=== PATIENT | female | born 1985 | race Caucasian/White ===

== ENCOUNTER 2017-07-06 16:16 | Emergency (ER) | payer OTHER ==
[~2017-07-06] VITALS: Ht 177.8 cm; Wt 97.7 kg
[~2017-07-06 16:16] MED LIST: TOPI200T14 PO; TRAM-10 PO
[2017-07-06 16:20] VITALS: TEMP 37.1; Ht 177.8 cm; Wt 97.7 kg
[2017-07-06] MEDS ORDERED: BUSP-8 PO (17:18)
[2017-07-06] MEDS ORDERED: MoRPHine SULFATE 4 MG/ML 1 ML CARP\\VIAL IV PRN (18:00)
[2017-07-06] MEDS ORDERED: ONDANSETRON INJ 2 MG/ML 2 ML VIAL IV PRN (18:00)
[2017-07-06] MEDS ORDERED: SODIUM CHLORIDE 0.9% 1000ML 1,000 ML IV ONE ×2 (18:00→19:30)
--- NOTE | 2017-07-06 18:05 | EMERGENCY ROOM VISIT NOTE ---
History First contact with patient: 17:41 Chief Complaint: ABDOMINAL PAIN Stated Complaint: ABDOMINAL PAIN Nursing Triage Summary: right sided abd pain, nausea and vomiting History of Present Illness The patient is a 31 year old female who presents to the Emergency Room with complaints of nausea, vomiting and abdominal pain. The patient's vomiting began yesterday. It does not have a specific color. She has vomited several times. She tried to have a root beer at work today and she is now unable to keep down liquids. The abdominal pain started earlier this morning. She describes it as a constant pain in the middle of her upper abdomen. It is worse with movement. She denies any diarrhea. Review of Systems 10 system review performed and negative unless noted in HPI or below Past Medical/Surgical History Medical Problems: (1) Diabetes (2) Knee surgery (3) Migraines (4) Seizure disorder (5) Tubal ligation Social History Smoking Status: Never Smoker Marital Status: single Housing Status: lives with family Occupation Status: employed Current/Historical Medications Scheduled Control Pills ( Control Pills), 1 TAB PO DAILY Buspirone Hcl (Buspirone Hcl), 10 MG PO TID Cefdinir (Omnicef), 600 MG PO DAILY Citalopram Hydrobromide (Citalopram Hydrobromide), 40 MG PO HS Lamotrigine (Lamictal), 200 MG PO BID Levothyroxine Sodium (Levothyroxine Sodium), 50 MCG PO DAILY Pantoprazole (Protonix), 40 MG PO DAILY Topiramate (Topamax), 200 MG PO BID Topiramate (Topamax), 50 MG PO BID Scheduled PRN Hydrocodone/Acetaminophen 5MG/325MG ([place] 5MG/325MG), 1-2 TABLET PO Q4H PRN for Pain Promethazine Hcl (Phenergan), 25 MG PO Q6H PRN for Nausea Tramadol (Ultram), 50 MG PO BID PRN for Pain Physical Exam Vital Signs Date Time Temp Pulse Resp B/P (MAP) Pulse Ox O2 Delivery O2 Flow Rate FiO2 07/06/17 22:10 89 16 110/58 97 07/06/17 19:50 85 16 123/73 95 Room Air 07/06/17 18:05 82 16 135/73 95 Room Air 07/06/17 16:20 37.1 106 20 133/83 96 Room Air Physical Exam VITALS: Vitals are noted on the nurse's note and reviewed by myself. Vital signs stable. GENERAL: 31-year-old female, uncomfortable in appearance, nondiaphoretic, well- developed well-nourished. SKIN: The skin was without rashes, erythema, edema, or bruising. HEAD: Normocephalic atraumatic. MOUTH: Mucous membranes dry NECK: Supple without nuchal rigidity. No lymphadenopathy. Cervical spine is nontender. No JVD. HEART: Regular rate and rhythm without murmurs gallops or rubs. LUNGS: Clear to auscultation bilaterally without wheezes, rales or rhonchi. No accessory muscle use. ABDOMEN:.Bowel sounds present, but hypoactive. Soft, mild tenderness to palpation in the left lower quadrant and left upper quadrant, without organomegaly. No guarding or rebound tenderness. MUSCULOSKELETAL: No muscle atrophy, erythema, or edema noted. Strength 5/5 throughout. NEURO: Patient was alert and oriented to person place and time. Normal sensation to touch. No focal neurological deficits. Medical Decision & Procedures ER Provider Diagnostic Interpretation: CT abdomen/pelvis with IV contrast IMPRESSION: 1. Left lower lobe pulmonary airspace opacity suspicious for pneumonia. Clinical and radiographic follow-up is recommended 2. No evidence of bowel obstruction. No evidence of free air 3. Normal appendix 4. Nonobstructing left renal calculus 5. Hepatic steatosis Electronically signed by: Jose Carlos Edmondson M.D. 07/06/2017 8:10 PM Dictated Date/Time: 07/06/2017 8:07 PM Laboratory Results 07/06/17 17:50 Red Blood Count 4.75, Mean Corpuscular Volume 88.2, Mean Corpuscular Hemoglobin 27.6, Mean Corpuscular Hemoglobin Concent 31.3, Mean Platelet Volume 9.6, Neutrophils (%) (Auto) 66.7, Lymphocytes (%) (Auto) 23.3, Monocytes (%) (Auto) 8.8, Eosinophils (%) (Auto) 0.7, Basophils (%) (Auto) 0.1, Neutrophils # (Auto) 8.91, Lymphocytes # (Auto) 3.12, Monocytes # (Auto) 1.18, Eosinophils # (Auto) 0.10, Basophils # (Auto) 0.02 07/06/17 17:50 Test 10/20/17 17:40 07/06/17 17:50 Urine Color DK YELLOW Urine Appearance CLEAR (CLEAR) Urine pH 5.5 (4.5-7.5) Urine Specific [place] 1.025 (1.000-1.030) Urine Protein NEG (NEG) Urine Glucose (UA) NEG (NEG) Urine Ketones NEG (NEG) Urine Occult Blood 2+ (NEG) Urine Nitrite NEG (NEG) Urine Bilirubin NEG (NEG) Urine Urobilinogen NEG (NEG) Urine Leukocyte Esterase TRACE (NEG) Urine WBC (Auto) 5-10 /hpf (0-5) Urine RBC (Auto) 10-30 /hpf (0-4) Urine Hyaline Casts (Auto) 0 /lpf (0-5) Urine Epithelial Cells (Auto) >30 /lpf (0-5) Urine Bacteria (Auto) 1+ (NEG) Urine Pathogenic Casts /lpf (0) Urine Mucus PRESENT (NONE PRSENT) Urine Test NEG (NEG) White Blood Count 13.38 K/uL (4.8-10.8) Red Blood Count 4.75 M/uL (4.2-5.4) Hemoglobin 13.1 g/dL (12.0-16.0) Hematocrit 41.9 % (37-47) Mean Corpuscular Volume 88.2 fL (80-100) Mean Corpuscular Hemoglobin 27.6 pg (25-34) Mean Corpuscular Hemoglobin Concent 31.3 g/dl (32-36) Platelet Count 280 K/uL (130-400) Mean Platelet Volume 9.6 fL (7.4-10.4) Neutrophils (%) (Auto) 66.7 % Lymphocytes (%) (Auto) 23.3 % Monocytes (%) (Auto) 8.8 % Eosinophils (%) (Auto) 0.7 % Basophils (%) (Auto) 0.1 % Neutrophils # (Auto) 8.91 K/uL (1.4-6.5) Lymphocytes # (Auto) 3.12 K/uL (1.2-3.4) Monocytes # (Auto) 1.18 K/uL (0.11-0.59) Eosinophils # (Auto) 0.10 K/uL (0-0.5) Basophils # (Auto) 0.02 K/uL (0-0.2) RDW Standard Deviation 44.3 fL (36.4-46.3) RDW Coefficient of Variation 13.6 % (11.5-14.5) Immature Granulocyte % (Auto) 0.4 % Immature Granulocyte # (Auto) 0.05 K/uL (0.00-0.02) Anion Gap 9.0 mmol/L (3-11) Est Creatinine Clear Calc Drug Dose 119.4 ml/min Estimated GFR () 102.9 Estimated GFR (Non- 88.8 BUN/Creatinine Ratio 8.4 (10-20) Calcium Level 9.1 mg/dl (8.5-10.1) Total Bilirubin 0.4 mg/dl (0.2-1) Aspartate Amino Transf (AST/SGOT) 14 U/L (15-37) Alanine Aminotransferase (ALT/SGPT) 15 U/L (12-78) Alkaline Phosphatase 78 U/L (45-117) Total Protein 7.9 gm/dl (6.4-8.2) Albumin 3.8 gm/dl (3.4-5.0) Globulin 4.1 gm/dl (2.5-4.0) Albumin/Globulin Ratio 0.9 (0.9-2) Lipase 122 U/L (73-393) Medications Administered Medications (Trade) Dose Ordered Sig/Taniya Route Start Time Stop Time Status Last Admin Dose Admin Sodium Chloride 1,000 ml @ 999 mls/hr Q1H1M ONCE IV 07/06/17 18:00 07/06/17 19:00 DC 07/06/17 18:01 999 MLS/HR Morphine Sulfate (MoRPHine SULFATE INJ) 4 mg Q1H PRN IV 07/06/17 18:00 07/06/17 22:22 DC 07/06/17 18:01 4 MG Ondansetron HCl (Zofran Inj) 4 mg Q2H PRN IV 07/06/17 18:00 07/06/17 22:22 DC 07/06/17 18:00 4 MG Hydromorphone HCl (Dilaudid Inj) 1 mg ONE ONCE IV 07/06/17 19:30 07/06/17 19:31 DC 07/06/17 19:47 1 MG Promethazine HCl 12.5 mg/Sodium Chloride 50.5 ml @ 204 mls/hr NOW STAT IV 07/06/17 19:28 07/06/17 19:42 DC 07/06/17 19:46 204 MLS/HR Sodium Chloride 1,000 ml @ 999 mls/hr Q1H1M ONCE IV 07/06/17 19:30 07/06/17 20:30 DC 07/06/17 19:49 999 MLS/HR Ceftriaxone Sodium (Rocephin Inj) 1 gm NOW STAT IV 07/06/17 21:13 07/06/17 21:15 DC 07/06/17 21:28 1 GM Dicyclomine HCl (Bentyl Cap) 10 mg NOW ONCE PO 07/06/17 21:15 07/06/17 21:17 DC 07/06/17 21:28 10 MG ED Course Patient was seen and examined Vital signs including blood pressure were reviewed medications list was verified with patient Labs were obtained, and a saline lock was established The patient was medicated with morphine, Zofran and hydrated with 1 L of normal saline Upon reevaluation, the patient was still complaining of pain she was given 1 dose of Dilaudid and Phenergan IV. The patient was hydrated with additional liter of saline. We discussed the results of her workup. She voiced understanding. The patient was given 1 dose of Rocephin 1 g IV. I reviewed discharge instructions the patient. They voiced understanding and had no further questions. Medical Decision DIFFERENTIAL DIAGNOSIS: Gastroenteritis, Hepatitis, cholecystitis, cholangitis, biliary colic, pancreatitis, appendicitis, inguinal hernia, nephrolithiasis, inflammatory bowel disease, mesenteric adenitis, peptic ulcer disease, GERD, gastritis, pancreatitis,, bowel obstruction, splenic infarct, diverticulitis, mesenteric ischemia, metabolic, peritonitis, among others. This patient is a 31-year-old female that presents to the emergency department with a main complaint of vomiting and upper abdominal pain. She was uncomfortable in appearance. She had tenderness in the left side of her abdomen. No signs of peritonitis. She did have leukocytosis on her labs. She has a few white blood cells in her urine, however she does not have any urinary symptoms. I ordered a CT because of her leukocytosis and persistence of her symptoms. No intra-abdominal abnormality was noted. It does appear that she has a left-sided pneumonia. She is complaining of a chronic cough. I'm unsure if this correlates with her abdominal pain or vomiting, however I do believe it should be treated with antibiotics. She was given a dose of Rocephin in addition to a prescription for Omnicef. She was instructed to have close follow -up with her primary care physician. She will return here with any new or worsening symptoms. This chart was completed in part utilizing [employer] Speech Voice Recognition software. Attempts were made to minimize the grammatical errors, random word insertions, pronoun errors and incomplete sentences. Any formal questions or concerns about the content, text or information contained within the body of this dictation should be directly addressed to the provider for clarification. Medication Reconcilliation Current Medication List: was personally reviewed by me Impression Primary Impression: Vomiting Additional Impression: Pneumonia Departure Information Dispostion Home / Self-Care Condition FAIR Prescriptions Hydrocodone/Acetaminophen 5MG/325MG ([place] 5MG/325MG) Tab 1-2 TABLET PO Q4H Y for Pain, #10 TAB For Initial Treatment Prov: Cele Santacruz PA-C 07/06/17 Cefdinir (OMNICEF) 300 Mg Cap 600 MG PO DAILY for 9 Days, #18 CAP Prov: Cele Santacruz PA-C 07/06/17 Promethazine Hcl (Phenergan) 25 Mg Tab 25 MG PO Q6H Y for Nausea, #10 TAB Prov: Cele Santacruz PA-C 07/06/17 Referrals Ron Childs M.D. (PCP) Patient Instructions Abdominal Pain, My [facility] Additional Instructions You were evaluated in the emergency department for vomiting and abdominal pain. It appears that you also possibly have pneumonia. Please finish the entire course of antibiotics. Please eat yogurt daily with this antibiotic. Please follow a clear liquid diet this evening such as broths, clear sodas and water. Please advance diet tomorrow to a bland diet as tolerated. Phenergan every 6 hours as needed for nausea Rest and drink plenty of fluids over the next 48 hours. [place] Take 1-2 pills every four hours for pain. Avoid alcohol, operating machinery or dangerous equipment, working on ladders or roofs, DRIVING, or situations where being under the influence may be dangerous. It is recommended to use an [id number] stool softener such as Colace, 100mg twice daily while taking this medication to avoid constipation. Please follow-up with her primary care physician on Sunday for a recheck. Please return to the emergency department immediately with any new or worsening symptoms. Problem Qualifiers
[2017-07-06 18:51] LABS: URINE APPEARANCE CLEAR (CLEAR); URINE BILIRUBIN NEG (NEG); URINE COLOR DK YELLOW; URINE EPITHELIAL CELL AUTO >30 /lpf (0-5); URINE NITRITE NEG (NEG); URINE PH 5.5 (4.5-7.5); URINE SPECIFIC GRAVITY 1.025 (1.000-1.030); UROBILINOGEN NEG (NEG)
[2017-07-06 18:55] LABS: MANUAL MICROSCOPIC REQUIRED? NO; REVIEW REQ? YES
[2017-07-06 18:58] LABS: BASO % 0.1 %; BASO ABS # 0.02 K/uL (0-0.2); COMPLETE YES; EOS % 0.7 %; HEMATOCRIT 41.9 % (37-47); IG% 0.4 %; LYMPH % 23.3 %; LYMPH ABS # 3.12 K/uL (1.2-3.4); MEAN CELL VOLUME 88.2 fL (80-100); MEAN CORPUSCULAR HEMOGLOBIN 27.6 pg (25-34); MEAN CORPUSCULAR HGB CONC 31.3 g/dl (32-36); MEAN PLATELET VOLUME 9.6 fL (7.4-10.4); MONO % 8.8 %; NEUT % 66.7 %; PLATELET COUNT 280 K/uL (130-400); RED BLOOD COUNT 4.75 M/uL (4.2-5.4); WHITE BLOOD COUNT 13.38 K/uL (4.8-10.8)
[2017-07-06 19:04] LABS: URINE MUCUS PRESENT (NONE PRSENT)
[2017-07-06 19:09] LABS: BUN/CREATININE RATIO 8.4 (10-20); CALCIUM 9.1 mg/dl (8.5-10.1); CREATININE 0.88 mg/dl (0.60-1.20); POTASSIUM 3.6 mmol/L (3.5-5.1)
[2017-07-06 19:11] LABS: ALB/GLOB RATIO 0.9 (0.9-2)
[2017-07-06] MEDS ORDERED: PROMETHAZINE HCL INJ 12.5 MG in SODIUM CHLORIDE 0.9% 50ML 50 ML IV STA (19:28)
[2017-07-06] MEDS ORDERED: OPTIRAY 320 IV PRN (19:30)
[2017-07-06] MEDS ORDERED: HYDROmorphone INJ 1 MG/ML SYR IV ONE (19:30)
--- NOTE | 2017-07-06 20:11 | DIAGNOSTIC IMAGING REPORT ---
CT ABD/PELVIS IV CONTRAST ONLY CLINICAL HISTORY: Epigastric pain, vomiting, leukocytosis COMPARISON STUDY: The 2014 TECHNIQUE: Following the IV administration of 93 mL of Optiray-320, CT scan of the abdomen and pelvis was performed from the lung bases to the proximal femurs. Images are reviewed in the axial, sagittal, and coronal planes. IV contrast was administered without complication. A dose lowering technique was utilized adhering to the principles of ALARA. CT DOSE: 765.82 mGy.cm FINDINGS: Lower chest: There are left lower lobe airspace opacity suspicious for pneumonia. There is associated left lower lobe bronchial wall thickening and mucous plugging. Clinical and radiographic follow-up is recommended. Liver: There is hepatic steatosis. No focal masses are visualized. Gallbladder: Unremarkable. Spleen: Normal in size and attenuation. Pancreas: Unremarkable. Adrenal glands: Unremarkable. Kidneys: There is a 5 mm lower pole left renal calculus. There is no significant hydronephrosis. No ureteral calculi are visualized. Bowel: There are no transition zones indicate bowel obstruction. The appendix appears normal. There is no acute diverticulitis. Peritoneum: There is no intraperitoneal free air or abdominal ascites. Vasculature: The abdominal aorta is normal in course and caliber. Adenopathy: None. Pelvic viscera: The bladder, and pelvic viscera are unremarkable. Skeletal structures: No destructive osseous lesions are seen. IMPRESSION: 1. Left lower lobe pulmonary airspace opacity suspicious for pneumonia. Clinical and radiographic follow-up is recommended 2. No evidence of bowel obstruction. No evidence of free air 3. Normal appendix 4. Nonobstructing left renal calculus 5. Hepatic steatosis Electronically signed by: Jose Carlos Edmondson M.D. 07/06/2017 8:10 PM Dictated Date/Time: 07/06/2017 8:07 PM
[2017-07-06] MEDS ORDERED: LAMO100T16 PO (20:19)
[2017-07-06] MEDS ORDERED: BCPILLS PO (20:23)
[2017-07-06] MEDS ORDERED: CITA40TA4 PO (20:34)
[2017-07-06] MEDS ORDERED: PANT40TA PO (20:34)
[2017-07-06] MEDS ORDERED: TOPI50TA16 PO (20:34)
[2017-07-06] MEDS ORDERED: LEVO50TA6 PO (20:37)
[2017-07-06] MEDS ORDERED: KETOROLAC TROMETHAMINE 30 MG/ML VIAL IV STA (21:13)
[2017-07-06] MEDS ORDERED: CEFTRIAXONE SOD INJ 1 GM ADDVIAL IV STA (21:13)
[2017-07-06] MEDS ORDERED: XYLOCAINE 1%/SOD BICARB 20 ML VIAL INFIL ONE (21:15)
[2017-07-06] MEDS ORDERED: DICYCLOMINE HCL 10 MG CAP PO ONE (21:15)
[2017-07-06] MEDS ORDERED: PROM25TA9 PO (21:25)
[2017-07-06] MEDS ORDERED: HYDR-5688 PO (21:25)
[2017-07-06] MEDS ORDERED: CEFD300C2 PO (21:25)
[2017-07-06 22:10] VITALS: BP 110/58; PULSE 89; O2SAT 97
== END 2017-07-06 22:06 | disposition home or self-care (01) ==
LOC: C.EDB 16:18 → C.EDA 22:06
DX: R11.2 Nausea with vomiting, unspecified (principal); J18.9 Pneumonia, unspecified organism; E11.9 Type 2 diabetes mellitus without complications; G43.909 Migraine, unspecified, not intractable, without status migrainosus; G40.909 Epilepsy, unspecified, not intractable, without status epilepticus; Z98.51 Tubal ligation status; Z79.3 Long term (current) use of hormonal contraceptives

== ENCOUNTER 2018-05-12 19:06 | Emergency (ER) | payer OTHER ==
[~2018-05-12] VITALS: Ht 177.8 cm; Wt 98.0 kg
[~2018-05-12 19:06] MED LIST changes: +BCPILLS PO; +BUSP-8 PO; +CITA40TA4 PO; +LAMO100T16 PO; +LEVO50TA6 PO; +PANT40TA PO; +TOPI50TA16 PO
[2018-05-12 19:10] VITALS: TEMP 37; Ht 177.8 cm; Wt 98.0 kg
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
[2018-05-12 19:38] VITALS: O2SAT 97
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
[2018-05-12 21:42] VITALS: BP 120/69; PULSE 60; O2SAT 97
== END 2018-05-12 21:43 | disposition home or self-care (01) ==
LOC: C.EDB 19:08
DX: G44.309 Post-traumatic headache, unspecified, not intractable (principal); S00.531A Contusion of lip, initial encounter; S00.83XA Contusion of other part of head, initial encounter; S40.022A Contusion of left upper arm, initial encounter; R07.89 Other chest pain; R03.0 Elevated blood-pressure reading, without diagnosis of hypertension; R40.2412 Glasgow coma scale score 13-15, at arrival to emergency department; T76.11XA Adult physical abuse, suspected, initial encounter; W50.0XXA Accidental hit or strike by another person, initial encounter; R06.02 Shortness of breath; E11.9 Type 2 diabetes mellitus without complications; G40.909 Epilepsy, unspecified, not intractable, without status epilepticus; Z79.3 Long term (current) use of hormonal contraceptives; Z79.899 Other long term (current) drug therapy; Z88.1 Allergy status to other antibiotic agents